=== PATIENT | female | born 1955 | race Caucasian/White ===

== ENCOUNTER 2019-07-10 05:56 | Day surgery (SDC) | payer BC ==
[2019-07-01 15:29] VITALS: BMI 18.8
--- NOTE | 2019-07-10 07:07 | HP ---
History & Physical Update - History History: No Change - Physical Physical: No Change - Assessment Assessment: No Change - Plan Plan: No Change (Full H&P In paper chart)
[2019-07-10] MEDS ORDERED: BUPIVACAINE HCL/PF 2.5 MG/ML - 30 ML VIAL IJ ONE (07:12)
[2019-07-10] MEDS ORDERED: GENTAMICIN SO4 80 MG/2 ML VIAL ONE (07:12)
[2019-07-10] MEDS ORDERED: ceFAZolin SODIUM 1 GM VIAL ONE (07:12)
[2019-07-10] MEDS ORDERED: PROPOFOL 20 ML ONE ×2 (07:17)
[2019-07-10] MEDS ORDERED: SUCCINYLCHOLINE CHLORIDE 200 MG/10 ML SYRINGE ONE (07:17)
[2019-07-10] MEDS ORDERED: MIDAZOLAM HCL 2 MG/2 ML SINGLE DOSE VIAL ONE (07:17)
[2019-07-10] MEDS ORDERED: LIDOCAINE 1%/EPI 1:100000 (20 ML MULTI DOSE VIAL) ONE ×2 (08:01→08:37)
[2019-07-10] MEDS ORDERED: ePHEDrine SULFATE 50 MG/1 ML AMPULE ONE (08:24)
[2019-07-10] MEDS ORDERED: BUPIVACAINE HCL/PF 0.25% (2.5MG/ML) 10 ML VIAL IJ ONE (08:50)
[2019-07-10] MEDS ORDERED: LIDOCAINE 1%/EPI 1:100000 (50 ML MULTI DOSE VIAL) NR ONE (08:50)
[2019-07-10] MEDS ORDERED: ONDANSETRON 4 MG/2 ML VIAL IVPUSH PRN (09:43)
[2019-07-10] MEDS ORDERED: oxyCODONE HCL 5 MG TABLET PO PRN ×2 (09:43)
[2019-07-10] MEDS ORDERED: PROMETHAZINE HCL 25 MG/1 ML VIAL IVPUSH PRN (09:43)
--- NOTE | 2019-07-10 09:44 | OP ---
Operative Note - Note: Operative Date: 07/10/19 Pre-Operative Diagnosis: breast cancer Operation: bilateral breast capsulectomy with implant exchange with fat grafting from abdomen to left breast Post-Operative Diagnosis: Same as Pre-op Surgeon: Maninder Tinajero Electronics Mechanic: Dipesh Sosa Anesthesiologist/CHEF CONCIERGE: Alfonzo Mack Anesthesia: General Estimated Blood Loss (mls): 10 Operative Report Dictated: Yes
--- NOTE | 2019-07-10 09:59 | SURG ---
Surgery Cushion Installer Note Cushion Installer: Dipesh Sosa PA-C Date of Service: 07/10/19 Diagnosis: Breast cancer Procedure: bilateral breast capsulectomy with implant exchange with fat grafting from abdomen to left breast I was present for the entirety of the operative procedure. For further detail, please refer to operative report. Visit type - Case Type Case Type: Scheduled - Emergency Emergency Visit: No - New patient This patient is new to me today: Yes Date on this admission: 07/10/19 - Critical Care Critical Care patient: No
[2019-07-10 10:09] VITALS: PULSE 92
[2019-07-10 10:32] VITALS: TEMP 98.1
[2019-07-10 11:02] VITALS: BP 108/54
--- NOTE | 2019-07-14 15:51 | OP ---
DATE OF OPERATION: 07/10/2019 SURGEON: Laura Tinajero MD APPLICATIONS SCIENTIST SURGEON: EL Torres PREOPERATIVE DIAGNOSES: 1. Bilateral acquired chest wall deformity, status post bilateral mastectomy. 2. Personal history of breast carcinoma. 3. Asymmetry of reconstructed chest wall. 4. Capsular contracture breast reconstruction. POSTOPERATIVE DIAGNOSES: 1. Bilateral acquired chest wall deformity, status post bilateral mastectomy. 2. Personal history of breast carcinoma. 3. Asymmetry of reconstructed chest wall. 4. Capsular contracture breast reconstruction. OPERATIVE PROCEDURE: 1. Right breast reconstruction utilizing other technique. 2. Left breast reconstruction utilizing other technique. 3. Right breast capsulectomy, removal and replacement of right breast implant. 4. Left breast capsulectomy, removal of capsule and implant, left breast. OPERATIVE INDICATION: The patient is a 63-year-old female who presented with asymmetry of the reconstructed chest wall, history of breast cancer, and requiring the above procedures. The risks and benefits of surgical versus nonsurgical alternatives as well as material complications of the procedure were described to the patient on multiple occasions preoperatively. The patient requested saline implant reconstruction in lieu of silicone. All questions were asked and answered in the holding area when she was brought in the standing position today with outline of the procedure. OPERATIVE PROCEDURE IN DETAIL: The patient was taken to the operating room and after induction of general anesthesia in the supine position, both arms were extended and padded, Venodyne boots were placed, and after timeout was called, the entire chest wall, abdomen and flanks were prepped with ChloraPrep solution over its entire extent. Once this was accomplished, attention was turned to the mastectomy scars. An incision on the upper portion of the chest wall in the mid portion of the right breast was marked out for incision, injected with 1% local lidocaine anesthesia and 1:100,000 epinephrine, as was the inframammary scar on the left breast. At this point, the lower abdominal incision was also injected for harvest of reconstructed tissue, which was required for reconstruction. At this point, incision was made down through the right breast skin through the subcutaneous tissue down to the underlying capsule. The capsule was then opened and capsulectomy was performed by , and the implant removed and sent for pathologic diagnosis. The entire capsule was examined and no evidence of lesions were noted within the capsule itself, and the capsular tissue was sent for pathologic diagnosis. At this point, copious irrigation and hemostasis was carried out throughout the pocket. The inframammary incision on the left breast from previous breast reconstruction was also incised after local injection with 1% local lidocaine anesthesia, and then this was carried down to the skin to subcutaneous tissue, also removing the capsule and implant of the left breast. This was also sent for pathologic diagnosis. The same capsulectomy was performed on the left breast and tissue sent for pathology. Again, copious irrigation and hemostasis was meticulously obtained throughout the pocket, and then implants were chosen. At this point, attention was turned to the abdominal wall. Incisions were planned in the area over the rectus muscle and laterally over the oblique muscle in order to harvest reconstructive tissue for reconstruction. Incision was made down through skin to subcutaneous tissue down through the subcutaneous tissue to the underlying rectus muscle fascia, and then tissue was harvested over the rectus muscle, laterally over the obliques, and on right and left side symmetrically. This tissue was transferred to the back table, washed, cleansed, and prepared for reconstruction. Because the patient desired saline implants, Natrelle saline-filled breast implant, style 68 high-profile 350 mL implant was chosen. This was then placed into the right breast pocket and filled in a sterile fashion through a closed system with 400 mL volume, which matched the implant which was removed, as the patient desired similar volume. The implant was then placed in the opposite side secondarily with an independent placement in the left breast, and was filled to 270 mL, matching the volume of the previous implant. Good shape and contour was seen at this point. The wounds were again copiously irrigated and closed in layers using 3-0 PDS suture on the deep capsule and fascia, 3-0 in a deep dermal fashion, and a subcuticular suture with 4-0 Biosyn suture. The donor reconstructive tissue was then transferred to the breast on the right breast in the superior, medial, and central portions of the right breast, and the medial, superior, and inferior portions of the left breast. Good shape and contour was seen at the end of the procedure. The patient was dressed sterile with Dermabond, Steri-Strips, and a compressive dressing with a Surgi-Bra. She tolerated the procedure well. She was awakened, extubated, and transferred to the recovery room in satisfactory condition. LAURA TINAJERO M.D. [id number]
--- NOTE | 2019-07-14 16:16 | PATH ---
Surgical Pathology Report Patient Name: LEANDER WOMACK [facility]. Rec. #: [id number] /Age/Gender: 1955 (Age: 63) / F Account: [id number] Location: [facility] AM[facility]UL[facility] Taken: 07/10/2019 Received: 07/10/2019 Reported: 07/14/2019 Physicians: Maninder Tinajero Specimen(s) Received A: RIGHT BREAST CAPSUSLE B: LEFT BREAST CAPSULE C: RIGHT BREAST IMPLANT D: LEFT BREAST IMPLANT Clinical History History of breast cancer Final Diagnosis A. CAPSULE, RIGHT BREAST, CAPSULECTOMY: FIBROUS CAPSULE. B. CAPSULE, LEFT BREAST, CAPSULECTOMY: FIBROUS CAPSULE. FIBROADIPOSE TISSUE AND SKELETAL MUSCLE. C. IMPLANT, RIGHT BREAST, REMOVAL: IMPLANT, DESCRIBED (GROSS EXAMINATION ONLY). D. IMPLANT, LEFT BREAST, REMOVAL: IMPLANT, DESCRIBED (GROSS EXAMINATION ONLY). Electronically Signed Shanelle Higuera M.D. Gross Description A. Received in formalin labeled "right breast capsule," are 3 dominique, unoriented portions of firm fibrous tissue, consistent with breast capsule. The specimens range from 2.5 x 1.2 x 0.2 cm to 7.2 x 4.5 x 0.1 cm. No discrete masses are identified. [employer] sections are submitted in one cassette. B. Received in formalin labeled "left breast capsule," is a 4.0 x 2.2 x 0.3 cm dominique hernandez, irregular, unoriented portion of fibrous tissue, consistent with fibrous capsule. No discrete masses are identified. [employer] sections are submitted in one cassette. C. Received fresh labeled "right breast implant," is a 13.0 x 12.0 x 4.5 cm dominique, irregular, rubbery foreign body, consistent with a breast implant. No soft tissue is present. No sections are submitted, gross only. D. Received fresh labeled "left breast implant," is a 12.0 x 11.5 x 3.2 cm dominique, irregular, rubbery foreign body, consistent with a breast implant. No soft tissue is present. No sections are submitted, gross only. DL/07/11/2019 saudi/07/11/2019
== END 2019-07-10 11:09 | disposition home or self-care (01) ==
LOC: FASU 05:56
PROVIDERS: ATTEND Plastic Surgery
PROC: 0HPT0JZ Removal of Synthetic Substitute from Right Breast, Open Approach (ICD-10-PCS; 2019-07-10)
PROC: 0HRV0JZ Replacement of Bilateral Breast with Synthetic Substitute, Open Approach (ICD-10-PCS; 2019-07-10)
PROC: 0HRV07Z Replacement of Bilateral Breast with Autologous Tissue Substitute, Open Approach (ICD-10-PCS; principal; 2019-07-10 08:20)
PROC: 0HPU0JZ Removal of Synthetic Substitute from Left Breast, Open Approach (ICD-10-PCS; 2019-07-10 08:20)
DX: M65.4 Radial styloid tenosynovitis [de Quervain] (principal); Z85.3 Personal history of malignant neoplasm of breast; Z90.13 Acquired absence of bilateral breasts and nipples; N65.0 Deformity of reconstructed breast; N65.1 Disproportion of reconstructed breast; T85.44XA Capsular contracture of breast implant, initial encounter; Y82.8 Other medical devices associated with adverse incidents; Y92.9 Unspecified place or not applicable
CPT/HCPCS: 88300-TC; 88304-TC; 94760